=== PATIENT | male | born 1975 | race Caucasian/White ===

== ENCOUNTER → 2018-02-08 | Outpatient (CLI) | payer OTHER | LOC: EDSEX → CAT 05:52 | DX: Z13.6 Encounter for screening for cardiovascular disorders (principal) ==

== ENCOUNTER → 2018-10-25 | Outpatient (CLI) | payer OTHER | LOC: ULTRA 09:42 | DX: K76.0 Fatty (change of) liver, not elsewhere classified (principal); N28.1 Cyst of kidney, acquired ==

== ENCOUNTER → 2018-10-30 | Outpatient (CLI) | payer OTHER | LOC: CAT 12:36 | DX: K76.0 Fatty (change of) liver, not elsewhere classified (principal); I77.1 Stricture of artery ==

== ENCOUNTER → 2018-11-15 | Outpatient (CLI) | payer OTHER | LOC: CAT 11-08 16:06 | DX: N28.1 Cyst of kidney, acquired (principal); M47.816 Spondylosis without myelopathy or radiculopathy, lumbar region ==